=== PATIENT | female | born 2000 | race Two or more races ===

== ENCOUNTER 2019-09-03 02:45 | Emergency (ER) | payer OTHER ==
--- NOTE | 2019-09-03 04:38 | NUR ---
Patient/Caregiver given discharge instructions and they have confirmed that they understand the instructions. Patient ambulatory with steady gait.
== END 2019-09-03 04:40 | disposition home or self-care (01) ==
LOC: ED 03:51
DX: S66.512A Strain of intrinsic muscle, fascia and tendon of right middle finger at wrist and hand level, initial encounter (principal); X58.XXXA Exposure to other specified factors, initial encounter; Y93.89 Activity, other specified; Y92.098 Other place in other non-institutional residence as the place of occurrence of the external cause; Y99.8 Other external cause status
CPT/HCPCS: 29130; 99283